=== PATIENT | female | born 1950 | race Caucasian/White ===

== ENCOUNTER 2024-03-30 10:30 | Outpatient (OUT) | payer MEDICARE, SELFPAY ==
--- NOTE | 2024-03-30 10:43 | US_ITS ---
The [address] [address] Patient Name: PADMINI NUÑEZ MRN: [id number] date: 1950 Sex: F Assigned Patient Location: [place] Current Patient Location: Accession/Order Number: [id number] Exam Date: 03/30/2024 10:45 Report Date: 04/03/2024 12:00 At the request of: KIMBERLEE BRYANT Procedure: US thyroid EXAMINATION: US thyroid HISTORY: Lump In Neck COMPARISON: No relevant comparison available. FINDINGS: RIGHT LOBE: Normal size and echotexture. Incidental 4 mm colloid cyst. Lobe size: 3.4 x 1.3 x 1.3 cm LEFT LOBE: Normal size and echotexture. Lobe size: 3.5 x 1.3 x 1.1 cm ISTHMUS: Normal size and echotexture. Thickness: 3 mm US/US thyroid IMPRESSION: 1. No abnormal or suspicious findings of the thyroid gland. 2. No abnormal or suspicious findings under the chin in area localized by the patient for a palpable lump. Electronically authenticated by: TRANG GANN Date: 04/03/2024 12:00
== END 2024-03-30 10:31 | disposition home or self-care (01) ==
PROVIDERS: PCP Family Medicine; Visit Provider Family Medicine
DX: R22.1 Localized swelling, mass and lump, neck (principal)
CPT/HCPCS: 76536